=== PATIENT | male | born 2000 | race Caucasian/White ===

== ENCOUNTER 2023-09-26 10:07 | Outpatient (RCR) | payer OTHER | END 2023-10-01 | disposition home or self-care (01) | LOC: WSOH | DX: S60.132D Contusion of left middle finger with damage to nail, subsequent encounter (principal); J45.909 Unspecified asthma, uncomplicated; K50.90 Crohn's disease, unspecified, without complications; F31.9 Bipolar disorder, unspecified; Y99.0 Civilian activity done for income or pay ==